=== PATIENT | male | born 1965 | race Caucasian/White ===

== ENCOUNTER 2016-08-07 20:51 | Emergency (ER) | payer SELFPAY ==
[2016-08-07 21:20] VITALS: BP 154/97
[2016-08-07] MEDS ORDERED: Ketorolac 60 MG/2 ML SDV IM ONE (21:36)
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
[2016-08-07] MEDS ORDERED: Cyclobenzaprine 10 MG Tab PO ONE (21:55)
--- NOTE | 2016-08-08 08:28 | CR ---
Shoulder Comp Lt HISTORY: left shoulder pain after fall 08/03/16 FINDINGS: No acute fracture or dislocation is identified. Bony architecture and joint spaces are preserved. There are mild hypertrophic changes at the AC joint. Soft tissues are unremarkable. IMPRESSION: No fracture or other acute left shoulder abnormality is identified.
== END 2016-08-07 22:07 | disposition home or self-care (01) ==
LOC: JP.ED 20:51
DX: M25.512 Pain in left shoulder (principal); F41.9 Anxiety disorder, unspecified; Z98.890 Other specified postprocedural states; W17.89XA Other fall from one level to another, initial encounter
CPT/HCPCS: 73030; 96372; 99284; A9270; J1885; 99283

== ENCOUNTER 2016-12-25 02:48 | Emergency (ER) | payer SELFPAY ==
[2016-12-25 02:52] VITALS: BP 147/89
[2016-12-25] MEDS: Ketorolac 60 MG/2 ML SDV IM ONE ×2 (03:18→03:22)
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
[2016-12-25] MEDS ORDERED: Ketorolac 30 MG/ML SDV IVPUSH ONE (03:43)
--- NOTE | 2016-12-25 09:15 | CR ---
Humerus Lt HISTORY: Fall, pain. COMPARISON: None FINDINGS: No fracture or dislocation. No bony destructive process.
--- NOTE | 2016-12-25 09:28 | CR ---
Shoulder Comp Lt HISTORY: No Clinical Info COMPARISON: 08/07/2016. FINDINGS: Mild degenerative change in the AC joint. No acute fracture or dislocation. No bony destruc tive process.
== END 2016-12-25 04:04 | disposition home or self-care (01) ==
LOC: JP.ED 02:48
DX: S40.022A Contusion of left upper arm, initial encounter (principal); J45.909 Unspecified asthma, uncomplicated; F41.9 Anxiety disorder, unspecified; K21.9 Gastro-esophageal reflux disease without esophagitis; Z88.8 Allergy status to other drugs, medicaments and biological substances; Z88.1 Allergy status to other antibiotic agents; Z91.09 Other allergy status, other than to drugs and biological substances; Z79.899 Other long term (current) drug therapy; Z90.49 Acquired absence of other specified parts of digestive tract; W01.0XXA Fall on same level from slipping, tripping and stumbling without subsequent striking against object, initial encounter; Y92.488 Other paved roadways as the place of occurrence of the external cause
CPT/HCPCS: 73030; 73060; 96372; 99284; J1885

== ENCOUNTER 2019-07-16 19:21 | Emergency (ER) | payer MEDICAID ==
[2019-07-16] MEDS ORDERED: LORazepam 2 MG/ML SDV IVPUSH ONE (19:32)
[2019-07-16] MEDS ORDERED: fentaNYL 100 MCG/2 ML SDV IVPUSH ONE (19:32)
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
[2019-07-16] MEDS ORDERED: Ketorolac 60 MG/2 ML SDV IM ONE (20:43)
[2019-07-16] MEDS ORDERED: Ketorolac 30 MG/ML SDV IVPUSH ONE (20:59)
[2019-07-16 21:22] VITALS: BP 120/78; PULSE 89
--- NOTE | 2019-07-17 11:12 | CR ---
CHEST: Portable 07/16/2019 at 8:01 PM CLINICAL HISTORY:Chest pain COMPARISON:2010 FINDINGS: Lungs are emphysematous. Heart size and pulmonary vascularity are normal. No infiltrate effusion or pneumothorax. Mild scoliosis Impression: No acute cardiopulmonary findings COPD
== END 2019-07-16 22:09 | disposition home or self-care (01) ==
LOC: JP.ED 19:21
DX: F41.9 Anxiety disorder, unspecified (principal); K21.9 Gastro-esophageal reflux disease without esophagitis; J45.909 Unspecified asthma, uncomplicated; Z79.899 Other long term (current) drug therapy; Z88.8 Allergy status to other drugs, medicaments and biological substances
CPT/HCPCS: 36415; 71045; 71045-26; 80053; 80305-QW; 81001; 84484; 85025; 93005; 93010; 96374; 96375; 99285-25; J1885; J2060; J3010

== ENCOUNTER 2019-07-18 10:37 | Emergency (ER) | payer MEDICAID ==
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
[2019-07-18 11:03] VITALS: BP 128/87; PULSE 113
[2019-07-18] MEDS ORDERED: LORazepam 1 MG Tab PO ONE (11:06)
== END 2019-07-18 12:13 | disposition home or self-care (01) ==
LOC: JP.ED 10:37
DX: R07.9 Chest pain, unspecified (principal); F15.90 Other stimulant use, unspecified, uncomplicated; Z88.8 Allergy status to other drugs, medicaments and biological substances; Z88.1 Allergy status to other antibiotic agents; J45.909 Unspecified asthma, uncomplicated; K21.9 Gastro-esophageal reflux disease without esophagitis
CPT/HCPCS: 36415; 80305; 84484; 93005; 99284; A9270

== ENCOUNTER 2019-11-28 21:53 | Emergency (ER) | payer MEDICAID ==
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
[2019-11-28] MEDS ORDERED: hydrOXYzine HCL 100 MG/2 ML SDV IM ONE (22:07)
[2019-11-28 22:59] VITALS: BP 140/88; PULSE 84
== END 2019-11-28 23:23 | disposition home or self-care (01) ==
LOC: JP.ED 21:53
DX: L27.0 Generalized skin eruption due to drugs and medicaments taken internally (principal); T50.995A Adverse effect of other drugs, medicaments and biological substances, initial encounter; J45.909 Unspecified asthma, uncomplicated; Z88.1 Allergy status to other antibiotic agents; Z88.8 Allergy status to other drugs, medicaments and biological substances; Z77.098 Contact with and (suspected) exposure to other hazardous, chiefly nonmedicinal, chemicals; Z79.899 Other long term (current) drug therapy
CPT/HCPCS: 36415; 80053; 84484; 85027; 96372; 99285; J3410

== ENCOUNTER 2020-03-26 18:18 | Emergency (ER) | payer MEDICAID ==
[2020-03-26] MEDS ORDERED: Aspirin 81 MG Tab.Chew PO ONE (18:20)
[2020-03-26] MEDS ORDERED: Nitroglycerin 0.4 MG Tab.SL SL PRN (18:26)
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
[2020-03-26] MEDS: Sodium Chloride 0.9% 10 ML Syringe FLUSH PRN ×2 (18:51→20:46)
[2020-03-26 20:32] VITALS: BP 133/88; PULSE 94
[2020-03-26] MEDS ORDERED: Ketorolac 30 MG/ML SDV IVPUSH ONE (20:37)
[2020-03-26] MEDS ORDERED: Acetaminophen 500 MG Tab PO ONE (20:37)
== END 2020-03-26 21:41 | disposition home or self-care (01) ==
LOC: JP.ED 18:18
DX: R07.89 Other chest pain (principal); F15.10 Other stimulant abuse, uncomplicated; F12.90 Cannabis use, unspecified, uncomplicated; K21.9 Gastro-esophageal reflux disease without esophagitis; J45.909 Unspecified asthma, uncomplicated; F41.9 Anxiety disorder, unspecified; Z90.49 Acquired absence of other specified parts of digestive tract; Z88.8 Allergy status to other drugs, medicaments and biological substances; Z79.899 Other long term (current) drug therapy
CPT/HCPCS: 36415; 80305; 84484; 93005; 96374; 99285; A9270; J1885; 99284

== ENCOUNTER 2020-03-28 21:54 | Emergency (ER) | payer MEDICAID ==
[2020-03-29 00:11] VITALS: BP 146/98; PULSE 104
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
== END 2020-03-29 00:40 | disposition home or self-care (01) ==
LOC: JP.ED 21:54
DX: F41.1 Generalized anxiety disorder (principal); F15.10 Other stimulant abuse, uncomplicated; F12.10 Cannabis abuse, uncomplicated; J45.909 Unspecified asthma, uncomplicated; K21.9 Gastro-esophageal reflux disease without esophagitis; Z88.8 Allergy status to other drugs, medicaments and biological substances; Z88.1 Allergy status to other antibiotic agents; Z91.048 Other nonmedicinal substance allergy status; Z79.899 Other long term (current) drug therapy
CPT/HCPCS: 36415; 80053; 80305-QW; 81001; 84484; 85025; 85610; 85730; 86140; 93005; 99283; 99285-25

== ENCOUNTER 2020-05-13 19:20 | Emergency (ER) | payer MEDICAID | END 2020-05-13 19:37 | disposition left against medical advice (07) | LOC: JP.ED 19:20 | DX: Z53.21 Procedure and treatment not carried out due to patient leaving prior to being seen by health care provider (principal) ==

== ENCOUNTER 2020-05-14 14:26 | Emergency (ER) | payer MEDICAID ==
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
[2020-05-14 14:49] VITALS: BP 149/89; PULSE 122
[2020-05-14] MEDS ORDERED: Sodium Chloride 0.9% 1,000 ML IRR ONE (14:50)
[2020-05-14] MEDS ORDERED: Ondansetron 4 MG/2 ML SDV IVPUSH PRN (14:51)
[2020-05-14] MEDS ORDERED: Sodium Chloride 0.9% 10 ML SDV IV ONE (15:03)
[2020-05-14] MEDS: Sodium Chloride 0.9% 10 ML Syringe FLUSH PRN ×2 (15:07→15:49)
[2020-05-14] MEDS ORDERED: Sodium Chloride 0.9% 1,000 ML IV SCH (15:15)
[2020-05-14] MEDS ORDERED: Sodium Chloride 0.9% 10 ML Syringe FLUSH ONE (15:22)
[2020-05-14] MEDS ORDERED: Iopamidol 612 MG/ML 100 ML Bottle IV SCH (15:30)
[2020-05-14] MEDS: HYDROmorphone 0.5 MG/0.5 ML Syringe IVPUSH PRN ×2 (15:48→16:54)
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
[2020-05-14] MEDS ORDERED: Ketorolac 30 MG/ML SDV IVPUSH ONE (19:49)
[2020-05-14] MEDS ORDERED: LORazepam 2 MG/ML SDV IVPUSH ONE (20:32)
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
== END 2020-05-14 21:34 | disposition home or self-care (01) ==
LOC: JP.ED 14:26
DX: R07.89 Other chest pain (principal); J45.909 Unspecified asthma, uncomplicated; K21.9 Gastro-esophageal reflux disease without esophagitis; Z88.8 Allergy status to other drugs, medicaments and biological substances; Z88.1 Allergy status to other antibiotic agents; Z91.048 Other nonmedicinal substance allergy status; Z79.899 Other long term (current) drug therapy
CPT/HCPCS: 36415; 71045; 74177; 80053; 81001; 83690; 84484; 85025; 93005; 96374; 96375; 96376; 99284; J1170; J1885; J2060; J2405; J7030; Q9967

== ENCOUNTER 2020-11-18 21:57 | Emergency (ER) | payer MEDICAID ==
[2020-11-18 22:01] VITALS: BP 137/93; PULSE 104
[2020-11-18] MEDS ORDERED: LORazepam 1 MG Tab PO ONE (22:13)
[2020-11-18] MEDS ORDERED: Ketorolac 30 MG/ML SDV IM ONE (22:13)
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
== END 2020-11-18 23:26 | disposition home or self-care (01) ==
LOC: JP.ED 21:57
DX: R07.89 Other chest pain (principal); K21.9 Gastro-esophageal reflux disease without esophagitis; Z79.899 Other long term (current) drug therapy; Z88.8 Allergy status to other drugs, medicaments and biological substances; Z88.1 Allergy status to other antibiotic agents
CPT/HCPCS: 36415; 84484; 85379; 96372; 99284; A9270; J1885

== ENCOUNTER 2021-07-30 22:28 | Emergency (ER) | payer MEDICAID ==
[2021-07-30 23:36] LABS: TROPONIN I HIGH SENSITIVITY 10.6 pg/mL (<=60.3)
[2021-07-31] MEDS ORDERED: Alum Hydrox/Mag Hydrox/Simeth 15 ML, Lidocaine 2% 15 ML PO ONE ×2 (00:30)
[2021-07-31 01:04] VITALS: BP 164/98; PULSE 90
== END 2021-07-31 01:05 | disposition home or self-care (01) ==
LOC: JP.ED 22:28
DX: K29.00 Acute gastritis without bleeding (principal); J45.909 Unspecified asthma, uncomplicated; K21.9 Gastro-esophageal reflux disease without esophagitis; Z79.899 Other long term (current) drug therapy; Z90.49 Acquired absence of other specified parts of digestive tract; Z88.8 Allergy status to other drugs, medicaments and biological substances; Z88.1 Allergy status to other antibiotic agents; Z91.09 Other allergy status, other than to drugs and biological substances
CPT/HCPCS: 36415; 74176; 80053; 83690; 84484; 85025; 93005; 99285; A9270; 93010; 99283

== ENCOUNTER 2021-08-19 01:56 | Emergency (ER) | payer MEDICAID ==
[2021-08-19] MEDS ORDERED: Pantoprazole 40 MG Vial IVPUSH SCH (02:00)
[2021-08-19] MEDS ORDERED: Octreotide 100 MCG/ML SDV IVPUSH ONE (02:00)
[2021-08-19] MEDS ORDERED: Ondansetron 4 MG/2 ML SDV IVPUSH ONE (02:10)
[2021-08-19] MEDS ORDERED: Tranexamic Acid 1,000 MG in Sodium Chloride 0.9% 50 ML IV ONE (02:11)
[2021-08-19] MEDS ORDERED: Sodium Chloride 0.9% 1,000 ML IV SCH (02:15)
[2021-08-19] MEDS ORDERED: LORazepam 2 MG/ML SDV IVPUSH ONE (02:22)
[2021-08-19] MEDS ORDERED: Alum Hydrox/Mag Hydrox/Simeth 15 ML, Lidocaine 2% 15 ML PO ONE ×2 (02:25)
[2021-08-19 02:33] LABS: TROPONIN I HIGH SENSITIVITY 33.8 pg/mL (<=60.3)
[2021-08-19 04:27] VITALS: BP 148/104; PULSE 105
== END 2021-08-19 05:30 ==
LOC: JP.ED 01:56
DX: U07.1 COVID-19 (principal); K92.2 Gastrointestinal hemorrhage, unspecified; I15.8 Other secondary hypertension; R10.13 Epigastric pain; E83.51 Hypocalcemia; F15.10 Other stimulant abuse, uncomplicated; F12.10 Cannabis abuse, uncomplicated; F41.1 Generalized anxiety disorder; J45.909 Unspecified asthma, uncomplicated; Z90.49 Acquired absence of other specified parts of digestive tract; Z79.899 Other long term (current) drug therapy; Z88.8 Allergy status to other drugs, medicaments and biological substances; Z88.1 Allergy status to other antibiotic agents; Z91.018 Allergy to other foods
CPT/HCPCS: 36415; 71045; 80053; 80305; 82272; 83605; 84484; 85025; 85610; 85730; 86850; 86900; 86901; 87635; 93005; 96361; 96365; 96375; 99285; A9270; C9113; J2060; J2354; J2405; J3490; J7030; 93010; 99284; U0002

== ENCOUNTER 2024-01-29 13:16 | Emergency (ER) | payer MEDICAID ==
[2024-01-29] MEDS: Nitroglycerin 0.4 MG Tab.SL SL PRN (13:25)
[2024-01-29 13:33] LABS: BASOPHILS ABSOLUTE AUTO 0.09 K/uL (0.00-0.10); BASOPHILS PERCENT AUTO 0.9 % (0.1-1.3); EOSINOPHILS ABSOLUTE AUTO 0.33 K/uL (0.00-0.40); EOSINOPHILS PERCENT AUTO 3.4 % (0.0-5.4); HEMATOCRIT 39.9 % (38.4-49.7); HEMOGLOBIN 14.1 g/dL (12.9-16.9); IMMATURE GRAN ABSOLUTE AUTO 0.03 K/uL (0.00-0.23); IMMATURE GRAN PERCENT AUTO 0.3 % (0.0-0.7); LYMPHOCYTES ABSOLUTE AUTO 2.52 K/uL (0.8-3.3); LYMPHOCYTES PERCENT AUTO 25.9 % (11.4-47.7); MEAN CORPUSCULAR HEMOGLOBIN 32.9 pg (31.6-35.5); MEAN CORPUSCULAR HGB CONC 35.3 g/dL (31.6-35.5); MONOCYTES ABSOLUTE AUTO 0.91 K/uL (0.20-0.90); MONOCYTES PERCENT AUTO 9.3 % (3.3-12.6); NEUTROPHILS ABSOLUTE AUTO 5.86 K/uL (1.0-7.6); NEUTROPHILS PERCENT AUTO 60.2 % (40.0-78.1); PLATELET COUNT,PLT 266 K/uL (130-375); RED BLOOD CELL COUNT 4.29 M/uL (4.14-5.76); WHITE BLOOD CELL COUNT,WBC 9.7 K/uL (3.2-11.0)
[2024-01-29] MEDS: Aspirin 81 MG Tab.Chew PO ONE (13:37)
[2024-01-29] MEDS: fentaNYL 50 MCG/ML SDV IVPUSH ONE (13:55)
[2024-01-29 13:56] LABS: CALCIUM 9.4 mg/dL (8.5-10.1); CREATININE 1.1 mg/dL (0.8-1.3); EST CRCL DRUG DOSING (CG) 66.44 mL/min; POTASSIUM,K 4.3 mmol/L (3.6-5.2); TROPONIN I HIGH SENSITIVITY 11.2 pg/mL (<=60.3)
[2024-01-29 13:57] LABS: ANION GAP 14.3 mmol/L (5.0-14.0)
[2024-01-29 14:51] LABS: AMPHETAMINES SCREEN, URINE PRESUMPTIVE POSITIVE (NEGATIVE); BARBITURATE SCREEN,URINE NEGATIVE (NEGATIVE); BENZODIAZEPINES SCREEN,URINE NEGATIVE (NEGATIVE); METHADONE SCREEN, URINE NEGATIVE (NEGATIVE); METHAMPHETAMINES SCREEN, URINE PRESUMPTIVE POSITIVE (NEGATIVE); OXYCODONE SCREEN,URINE NEGATIVE (NEGATIVE); PROPOXYPHENE SCREEN,URINE NEGATIVE (NEGATIVE); THC SCREEN,URINE 50 NG/ML PRESUMPTIVE POSITIVE (NEGATIVE)
[2024-01-29] MEDS: Iopamidol 612 MG/ML 100 ML Bottle IV ONE (14:55)
[2024-01-29] MEDS: Sodium Chloride 0.9% 60 ML IV SCH (14:55)
[2024-01-29 16:22] VITALS: BP 139/87; PULSE 101
== END 2024-01-29 16:21 | disposition home or self-care (01) ==
LOC: JP.ED 13:16
DX: R07.89 Other chest pain (principal); F41.9 Anxiety disorder, unspecified; F19.10 Other psychoactive substance abuse, uncomplicated; J45.909 Unspecified asthma, uncomplicated; Z90.49 Acquired absence of other specified parts of digestive tract; Z90.81 Acquired absence of spleen; Z88.2 Allergy status to sulfonamides; Z88.8 Allergy status to other drugs, medicaments and biological substances; Z91.048 Other nonmedicinal substance allergy status; Z79.51 Long term (current) use of inhaled steroids
CPT/HCPCS: 36415; 71045; 71045-26; 71275; 71275-26; 80048; 80305-QW; 84484; 85025; 85379; 93005; 93010; 96374; 99285; 99285-25; A9270-GY; J3010; J3490; Q9967

== ENCOUNTER 2024-12-26 02:36 | Emergency (ER) | payer MEDICAID ==
[2024-12-26] MEDS ORDERED: Sodium Chloride 0.9% 10 ML Syringe FLUSH PRN (02:40)
[2024-12-26 02:45] LABS: PLATELET COUNT,PLT 303 K/uL (130-375); RED BLOOD CELL COUNT 4.33 M/uL (4.14-5.76); WHITE BLOOD CELL COUNT,WBC 12.6 K/uL (3.2-11.0)
[2024-12-26] MEDS: Nitroglycerin 0.4 MG Tab.SL SL PRN (02:45)
[2024-12-26 03:01] LABS: BAND ABSOLUTE MAN 0.13 K/uL; BAND PERCENT MAN 1 % (5-11); EOSINOPHILS ABSOLUTE MAN 0.38 K/uL (0.00-0.40); EOSINOPHILS PERCENT MAN 3 % (2-4); LYMPHOCYTES PERCENT MAN 33 % (24-44); MONOCYTES ABSOLUTE MAN 0.63 K/uL (0.20-0.90); MONOCYTES PERCENT MAN 5 % (2-6); NEUTROPHILS ABSOLUTE MAN 7.31 K/uL (1.0-7.6); SEG NEUTROPHILS PERCENT MAN 58 % (36-66)
[2024-12-26 03:02] LABS: LYMPHOCYTES ABSOLUTE MAN 4.16 K/uL (0.8-3.3)
[2024-12-26 03:03] LABS: A/G RATIO 0.9 (1.2-2.2); ALANINE AMINOTRANSFERASE,ALT 26 U/L (12-78); ASPARTATE AMNIOTRANSFERASE,AST 22 U/L (15-37); BILIRUBIN TOTAL 0.2 mg/dL (0.2-1.0); BLOOD UREA NITROGEN,BUN 16 mg/dL (7-18); CARBON DIOXIDE,CO2 25 mmol/L (21-32); CHLORIDE,CL 103 mmol/L (100-108); CREATININE 1.0 mg/dL (0.8-1.3); EST CRCL DRUG DOSING (CG) 77.14 mL/min; ESTIMATED GFR 86 mL/min (>60); GLUCOSE RANDOM 159 mg/dL (74-106); POTASSIUM,K 3.0 mmol/L (3.6-5.2); PROTEIN TOTAL,TP 7.0 g/dL (6.4-8.2); SODIUM,NA 138 mmol/L (140-148); TROPONIN I HIGH SENSITIVITY 33.4 pg/mL (<=60.3)
[2024-12-26] MEDS: LORazepam 2 MG/ML SDV IVPUSH ONE (03:10)
[2024-12-26] MEDS: Ketorolac 30 MG/ML SDV IVPUSH ONE (04:49)
[2024-12-26] MEDS: Potassium Chloride 20 MEQ Tab.ER PO ONE (04:50)
[2024-12-26 06:12] VITALS: BP 168/102; PULSE 91
== END 2024-12-26 06:12 | disposition home or self-care (01) ==
LOC: JP.ED 02:36
DX: R07.89 Other chest pain (principal); Z91.09 Other allergy status, other than to drugs and biological substances; Z88.8 Allergy status to other drugs, medicaments and biological substances; Z88.1 Allergy status to other antibiotic agents; Z79.899 Other long term (current) drug therapy
CPT/HCPCS: 36415; 71045; 71045-26; 80053; 84484; 85025; 93005; 96374; 96375; 96376; 99285-25; A9270-GY; J1885; J2060; J2270

== ENCOUNTER 2025-02-19 14:48 | Emergency (ER) | payer MEDICAID ==
[2025-02-19 15:12] LABS: BASOPHILS ABSOLUTE AUTO 0.09 K/uL (0.00-0.10); BASOPHILS PERCENT AUTO 0.8 % (0.1-1.3); EOSINOPHILS ABSOLUTE AUTO 0.12 K/uL (0.00-0.40); EOSINOPHILS PERCENT AUTO 1.1 % (0.0-5.4); IMMATURE GRAN ABSOLUTE AUTO 0.03 K/uL (0.00-0.23); IMMATURE GRAN PERCENT AUTO 0.3 % (0.0-0.7); LYMPHOCYTES ABSOLUTE AUTO 1.82 K/uL (0.8-3.3); LYMPHOCYTES PERCENT AUTO 16.2 % (11.4-47.7); MONOCYTES ABSOLUTE AUTO 0.87 K/uL (0.20-0.90); MONOCYTES PERCENT AUTO 7.8 % (3.3-12.6); NEUTROPHILS ABSOLUTE AUTO 8.29 K/uL (1.0-7.6); NEUTROPHILS PERCENT AUTO 73.8 % (40.0-78.1); PLATELET COUNT,PLT 300 K/uL (130-375); RED BLOOD CELL COUNT 4.47 M/uL (4.14-5.76); WHITE BLOOD CELL COUNT,WBC 11.2 K/uL (3.2-11.0)
[2025-02-19] MEDS: Nitroglycerin 0.4 MG Tab.SL SL PRN (15:17)
[2025-02-19 15:19] LABS: INR 1.0
[2025-02-19 15:41] LABS: A/G RATIO 1.0 (1.2-2.2); ALANINE AMINOTRANSFERASE,ALT 33 U/L (12-78); ASPARTATE AMNIOTRANSFERASE,AST 27 U/L (15-37); BILIRUBIN TOTAL 0.5 mg/dL (0.2-1.0); BLOOD UREA NITROGEN,BUN 24 mg/dL (7-18); CARBON DIOXIDE,CO2 26 mmol/L (21-32); CHLORIDE,CL 104 mmol/L (100-108); CREATININE 1.1 mg/dL (0.8-1.3); EST CRCL DRUG DOSING (CG) 67.87 mL/min; ESTIMATED GFR 76 mL/min (>60); GLUCOSE RANDOM 182 mg/dL (74-106); POTASSIUM,K 4.3 mmol/L (3.6-5.2); PRO B-TYPE NATRIUR PEPT,BNPPRO 142 pg/mL (5-125); PROTEIN TOTAL,TP 7.8 g/dL (6.4-8.2); SODIUM,NA 139 mmol/L (140-148)
[2025-02-19] MEDS ORDERED: Naloxone 0.4 MG/ML SDV IVPUSH PRN (15:59)
[2025-02-19] MEDS: diphenhydrAMINE 50 MG/ML SDV IVPUSH ONE (16:28)
[2025-02-19] MEDS: Sodium Chloride 0.9% 10 ML Syringe FLUSH ONE (16:37)
[2025-02-19] MEDS: Iopamidol 612 MG/ML 100 ML Bottle IV ONE (16:37)
[2025-02-19 17:47] VITALS: BP 157/91; PULSE 89
== END 2025-02-19 18:26 | disposition home or self-care (01) ==
LOC: JP.ED 14:48
DX: I26.93 Single subsegmental thrombotic pulmonary embolism without acute cor pulmonale (principal); E86.0 Dehydration; R06.89 Other abnormalities of breathing; Z88.5 Allergy status to narcotic agent; Z88.8 Allergy status to other drugs, medicaments and biological substances; Z91.09 Other allergy status, other than to drugs and biological substances; Z79.899 Other long term (current) drug therapy; Z90.49 Acquired absence of other specified parts of digestive tract
CPT/HCPCS: 36415; 71045; 71275; 74177; 80053; 80307; 83605; 83880; 84484; 85025; 85379; 85610; 93005; 96361; 96374; 96375; 99285; A9270; J1200; J2270; J7030; Q9967